=== PATIENT | female | born 1955 | race African-American/Black ===

== ENCOUNTER 2018-01-09 14:14 | Emergency (ER) | payer MEDICAID ==
[~2018-01-09] VITALS: Ht 162.6 cm; Wt 80.0 kg
[~2018-01-09 14:14] MED LIST: AMLO5TAB4 PO; GLIP5TAB12 PO; LEVO25TA7 PO; TRAZ-129 PO
[2018-01-09 17:10] LABS: BASOPHILS % 1.4 % (0.0-2.0); HEMATOCRIT. 35.5 % (36.0-48.0); HEMOGLOBIN. 11.2 g/dL (12.0-16.0); LYMPHOCYTES % 16.4 % (20.0-50.0); MEAN CORPUSCULAR VOLUME 72.7 fL (81.0-99.0); MEAN PLATELET VOLUME 7.5 fl (7.4-10.4); MONOCYTES % 2.6 % (2.0-8.0); NEUTROPHILS % 78.6 % (40.0-76.0); PLATELET 389 x1000/uL (130-400); RED BLOOD CELL COUNT 4.88 mill/uL (4.2-5.4); RED CELL DISTRIBUTION WIDTH 15.2 % (11.6-14.6)
[2018-01-09 17:16] LABS: CHLORIDE 105 mEq/L (98-107)
[2018-01-09 17:18] LABS: PARTIAL THROMBOPLASTIN TIME 28.9 sec (23.4-31.0); PROTHROMBIN TIME 10.4 sec (9.4-11.6)
[2018-01-09 19:27] VITALS: BP 136/63
== END 2018-01-09 19:27 | disposition home or self-care (01) ==
LOC: ER 14:49
DX: R53.1 Weakness (principal); F32.9 Major depressive disorder, single episode, unspecified; E11.9 Type 2 diabetes mellitus without complications; I10 Essential (primary) hypertension; E03.9 Hypothyroidism, unspecified; Z79.84 Long term (current) use of oral hypoglycemic drugs; Z88.8 Allergy status to other drugs, medicaments and biological substances
CPT/HCPCS: 36415; 70450; 71045; 80053; 83690; 84484; 85025; 85610; 85730; 93005; 99285